=== PATIENT | female | born 1950 | race Caucasian/White ===

== ENCOUNTER 2017-07-27 21:50 | Emergency (ER) | payer SELFPAY ==
[~2017-07-27] VITALS: Ht 157.5 cm; Wt 72.7 kg
[2017-07-27] MEDS ORDERED: LOSA25TA21 PO (23:47)
[2017-07-27] MEDS ORDERED: INSLAN SQ (23:47)
[2017-07-27 23:52] LABS: GLUCOSE,POINT OF CARE 186 MG/DL (70-110)
[2017-07-28 03:16] VITALS: BP 155/86
== END 2017-07-28 03:30 | disposition home or self-care (01) ==
LOC: EMS 21:54
DX: S90.31XA Contusion of right foot, initial encounter (principal); I10 Essential (primary) hypertension; V03.90XA Pedestrian on foot injured in collision with car, pick-up truck or van, unspecified whether traffic or nontraffic accident, initial encounter; Y93.89 Activity, other specified; Y92.89 Other specified places as the place of occurrence of the external cause; Y99.8 Other external cause status
CPT/HCPCS: 82962; 99284